=== PATIENT | female | born 1995 | race Caucasian/White ===

== ENCOUNTER 2017-02-10 16:59 | Emergency (ER) | payer OTHER ==
[2017-02-10 17:08] VITALS: BP 133/83
[2017-02-10] MEDS ORDERED: BENZONATATE 100 MG CAPSULE PO ONE (18:01)
--- NOTE | 2017-02-10 18:07 | ER Document Report ---
ED Oral Problem - General Chief Complaint: Mouth Problem Stated Complaint: MOUTH PAIN Time Seen by Provider: 02/10/17 17:39 Mode of Arrival: Ambulatory Information source: Patient Notes: 1-year-old female presents to ED for complaint of mouth pain. She states she just had her wisdom teeth removed ago and when she went to the dentist until she was having severe pain in the upper right side they were not there and was she was told that they were out of town. TRAVEL OUTSIDE OF THE [place] IN LAST 30 DAYS: No - HPI Patient complains to provider of: Other - Dental pain at the site of a wisdom tooth extraction on Onset: Other - Onset: Gradual Quality of pain: Throbbing Severity: Moderate Pain Level: 4 Context: Recent dental extractions Associated symptoms: Other - The site of the recent tooth extraction removal of tooth Worsened by: Other - States it hurts all the time Relieved by: Nothing Similar symptoms previously: No Recently seen / treated by doctor/dentist: Yes - Related Data Allergies/Adverse Reactions: amoxicillin [Amoxicillin] Allergy (Verified 02/10/17 17:06) Past Medical History - Social History Smoking Status: Never Smoker Chew tobacco use (# tins/day): No Smoking Education Provided: No Frequency of alcohol use: Social Drug Abuse: None Occupation: none Lives with: Family Family History: CAD, DM, Hyperlipidemia, Hypertension, Malignancy, Thyroid Disfunction. denies: Arthritis, COPD, CVA Patient has suicidal ideation: No Patient has homicidal ideation: No - Past Medical History Cardiac Medical History: Reports: None Pulmonary Medical History: Reports: None EENT Medical History: Reports: None Neurological Medical History: Reports: Hx Migraine Endocrine Medical History: Reports: None Renal/ Medical History: Reports: None Malignancy Medical History: Reports: None GI Medical History: Reports: Hx Gastroesophageal Reflux Disease Musculoskeltal Medical History: Reports None Skin Medical History: Reports None Psychiatric Medical History: Reports: None Traumatic Medical History: Reports: None Infectious Medical History: Reports: None Past Surgical History: Reports: Hx Oral Surgery - [place] teeth - Immunizations Immunizations up to date: Yes Hx Diphtheria, Pertussis, Tetanus Vaccination: Yes Review of Systems - Review of Systems Constitutional: No symptoms reported EENT: Mouth pain - [place] teeth extraction Cardiovascular: No symptoms reported Respiratory: No symptoms reported Gastrointestinal: No symptoms reported Genitourinary: No symptoms reported Female Genitourinary: No symptoms reported Musculoskeletal: No symptoms reported Skin: No symptoms reported Hematologic/Lymphatic: No symptoms reported Neurological/Psychological: No symptoms reported Physical Exam - Vital signs Vitals: Temp Pulse Resp BP Pulse Ox 98.7 F 103 H 16 133/83 H 97 02/10/17 17:06 02/10/17 17:06 02/10/17 17:06 02/10/17 17:06 02/10/17 17:06 Interpretation: Normal - General General appearance: Appears well, Alert - HEENT Head: Normocephalic, Atraumatic Eyes: Normal Pupils: PERRL Ears: Normal External canal: Normal Tympanic membrane: Normal Sinus: Normal Nasal: Normal Teeth diagram: 1 - [place] teeth extraction surgically. Tooth was extracted today is Thursday Pharynx: Normal Neck: Normal - Respiratory Respiratory status: No respiratory distress Chest status: Nontender Breath sounds: Normal Chest palpation: Normal - Cardiovascular Rhythm: Regular Heart sounds: Normal auscultation Murmur: No - Abdominal Inspection: Normal Distension: No distension Bowel sounds: Normal Tenderness: Nontender Organomegaly: No organomegaly - Back Back: Normal, Nontender - Extremities General upper extremity: Normal inspection, Nontender, Normal color, Normal ROM , Normal temperature General lower extremity: Normal inspection, Nontender, Normal color, Normal ROM , Normal temperature, Normal weight bearing. No: Kajal's sign - Neurological Neuro grossly intact: Yes Cognition: Normal Orientation: AAOx4 [place] Coma Scale Eye Opening: Spontaneous [place] Coma Scale Verbal: Oriented [place] Coma Scale Motor: Obeys Commands William Coma Scale Total: 15 Speech: Normal Motor strength normal: LUE, RUE, LLE, RLE Sensory: Normal - Psychological Associated symptoms: Normal affect, Normal mood - Skin Skin Temperature: Warm Skin Moisture: Dry Skin Color: Normal Course - Vital Signs Vital signs: Temp Pulse Resp BP Pulse Ox 98.7 F 103 H 16 133/83 H 97 02/10/17 17:06 02/10/17 17:06 02/10/17 17:06 02/10/17 17:06 02/10/17 17:06 Discharge - Discharge Clinical Impression: pain at site for recent dental extractio Condition: Stable Disposition: HOME, SELF-CARE Instructions: Dentist Additional Instructions: You have pain at the site of your wisdom tooth extraction. This is usually caused by a dry socket. Take your pain medication as prescribed and follow up with your dentist as soon as possible. I am giving you a medicine that will help to numb the area you can take that every 8 hours as I explained it to you. Take your antibiotics and pain medications as they were prescribed by the dentist. No sucking on straws. FOLLOW-UP CARE: You have been referred for follow-up care to the dentists listed below. Call the dentists office for an appointment as you were instructed or within the next two days. If you experience worsening or a significant change in your symptoms, notify the physician immediately or return to the Emergency Department at any time for re-evaluation. [facility] [address] [place], [place] Thursday mornings, by appointment [facility] [address] [place] [address] [facility] [place] [address] [facility] [address] [facility] ([facility]) [facility] [address] [email or web address] [address] [place] [address] Thursday- 8:00am to 5:00 pm Will see patients from other [facility]. Charges based on income and family size and accepts Medicare, Medicaid, and Insurances Will pull molars [facility] [id number] Hours of Operation 8:00 am - 4:30 pm weekdays The following dental offices accept Medicaid: [facility] Dr. [address]on Dr. Diallo Dr. David Dr. Leiva Adiel Roy, Holly, and Karoline oral surgery Dr. Miller ([place]) Dr. Waldron ([place]) [facility] Drs. Gaming and Deon ([place]) Dr. Mayers ([place]) [facility] Dr. Joe ([place]) Drs. Floyd and ([place]) Medicaid Care Line FOLLOW-UP CARE: If you have been referred to a physician for follow-up care, call the physician s office for an appointment as you were instructed or within the next two days. If you experience worsening or a significant change in your symptoms, notify the physician immediately or return to the Emergency Department at any time for re-evaluation. Prescriptions: Benzonatate [Tessalon Perle 100 mg Capsule] 100 mg PO Q8HP PRN #14 cap PRN Reason: Forms: Elevated Blood Pressure
== END 2017-02-10 18:22 | disposition home or self-care (01) ==
LOC: ER 16:59
DX: K08.9 Disorder of teeth and supporting structures, unspecified (principal); Z98.818 Other dental procedure status; Z88.0 Allergy status to penicillin
CPT/HCPCS: 99282

== ENCOUNTER 2017-08-08 13:15 | Emergency (ER) | payer OTHER ==
[2017-08-08] MEDS ORDERED: NORMAL SALINE 1000 ML 1,000 ML IV ONE ×2 (13:31→15:42)
[2017-08-08] MEDS ORDERED: ONDANSETRON HCL INJ/PF 4 MG/2 ML SDV IV ONE (13:32)
--- NOTE | 2017-08-08 13:33 | ER Document Report ---
ED Medical Screen (RME) - General Chief Complaint: Nausea/Vomiting Stated Complaint: NAUSEA, VOMTING Time Seen by Provider: 08/08/17 13:31 Mode of Arrival: Wheelchair Information source: Patient TRAVEL OUTSIDE OF THE [place] IN LAST 30 DAYS: No - HPI Patient complains to provider of: N/V; ETOH use (recent) Onset: Other - pt states she "drank too much alcohol last pm" and has been vomiting ever since (denies diarrhea) - Related Data Allergies/Adverse Reactions: amoxicillin [Amoxicillin] Allergy (Verified 02/10/17 17:06) Past Medical History Neurological Medical History: Reports: Hx Migraine Renal/ Medical History: Denies: Hx Peritoneal Dialysis GI Medical History: Reports: Hx Gastroesophageal Reflux Disease Past Surgical History: Reports: Hx Oral Surgery - [place] teeth - Immunizations Immunizations up to date: Yes Hx Diphtheria, Pertussis, Tetanus Vaccination: Yes Physical Exam - Vital signs Vitals: Temp Pulse Resp BP Pulse Ox 99.0 F 118 H 18 136/93 H 99 08/08/17 13:19 08/08/17 13:19 08/08/17 13:19 08/08/17 13:19 08/08/17 13:19 Course - Vital Signs Vital signs: Temp Pulse Resp BP Pulse Ox 99.0 F 118 H 18 136/93 H 99 08/08/17 13:19 08/08/17 13:19 08/08/17 13:19 08/08/17 13:19 08/08/17 13:19
[2017-08-08 14:04] LABS: ABSOLUTE LYMPHOCYTES (AUTO) 0.8 10^3/uL (0.5-4.7); ABSOLUTE MONOCYTES (AUTO) 0.2 10^3/uL (0.1-1.4); ABSOLUTE NEUT (AUTO) 9.8 10^3/uL (1.7-8.2); BASOPHILS % (AUTO) 0.3 % (0-2); EOSINOPHILS % (AUTO) 0.1 % (0-6); HEMATOCRIT 43.7 % (36.0-47.0); HEMOGLOBIN 15.1 g/dL (12.0-15.5); HGB HCT DIFFERENCE 1.6; LYMPHOCYTES % (AUTO) 7.4 % (13-45); MEAN CORPUSCULAR HEMOGLOBIN 31.2 pg (27.0-33.4); MEAN CORPUSCULAR HGB CONC 34.4 g/dL (32.0-36.0); MEAN CORPUSCULAR VOLUME 91 fl (80-97); MONOCYTES % (AUTO) 1.9 % (3-13); RED BLOOD COUNT 4.82 10^6/uL (3.72-5.28); RED CELL DISTRIBUTION WIDTH 13.4 % (11.5-14.0); SEGMENTED NEUTROPHILS % (AUTO) 90.3 % (42-78); WHITE BLOOD COUNT 10.8 10^3/uL (4.0-10.5)
[2017-08-08] MEDS ORDERED: DIPHENHYDRAMINE HCL 50 MG/ML VIAL IV ONE (14:19)
[2017-08-08] MEDS ORDERED: DEXTROSE 5%-LACTATED RINGERS 1,000 ML IV ONE (14:19)
[2017-08-08] MEDS ORDERED: KETOROLAC TROMETHAMINE INJ/PF 30 MG/1 ML SDV IV ONE (14:19)
[2017-08-08] MEDS ORDERED: PROCHLORPERAZINE EDISYLATE INJ 10 MG/2 ML VIAL IM ONE (14:19)
--- NOTE | 2017-08-08 14:19 | ER Document Report ---
ED GI/ - General Mode of Arrival: Wheelchair Information source: Patient TRAVEL OUTSIDE OF THE [place] IN LAST 30 DAYS: No <CURT NEGRETE - Last Filed: 08/08/17 14:22> <BERTRAND AUSTIN - Last Filed: 08/08/17 16:06> - General Chief Complaint: Nausea/Vomiting Stated Complaint: NAUSEA, VOMTING Time Seen by Provider: 08/08/17 13:31 Notes: Patient is a 21-year-old female that presents to the emergency department today after waking up this morning at 0900 with a headache, nausea, vomiting, and associated abdominal pain. Patient states that yesterday she drank quite a bit of EtOH and she believes she is hungover. Patient has a history of migraine headaches. Patient states she is not a heavy drinker usually. (CURT NEGRETE) - Related Data Allergies/Adverse Reactions: amoxicillin [Amoxicillin] Allergy (Verified 02/10/17 17:06) Past Medical History - General Information source: Patient - Social History Smoking Status: Never Smoker Cigarette use (# per day): No Chew tobacco use (# tins/day): No Frequency of alcohol use: 2-3 beers every 2 weeks Drug Abuse: None Family History: CAD, DM, Hyperlipidemia, Hypertension, Malignancy, Thyroid Disfunction Patient has suicidal ideation: No Patient has homicidal ideation: No Neurological Medical History: Reports: Hx Migraine GI Medical History: Reports: Hx Gastroesophageal Reflux Disease Past Surgical History: Reports: Hx Oral Surgery - [place] teeth - Immunizations Immunizations up to date: Yes Hx Diphtheria, Pertussis, Tetanus Vaccination: Yes <CURT NEGRETE - Last Filed: 08/08/17 14:22> Review of Systems - Review of Systems Constitutional: No symptoms reported EENT: See HPI, Other - dry mouth Cardiovascular: No symptoms reported Respiratory: No symptoms reported Gastrointestinal: See HPI, Abdominal pain, Nausea, Vomiting Genitourinary: No symptoms reported Female Genitourinary: No symptoms reported Musculoskeletal: No symptoms reported Skin: No symptoms reported Hematologic/Lymphatic: No symptoms reported Neurological/Psychological: See HPI, Headaches -: Yes All other systems reviewed and negative <CURT NEGRETE - Last Filed: 08/08/17 14:22> Physical Exam - General General appearance: Other - appears uncomfortable In distress: None - HEENT Head: Normocephalic, Atraumatic Eyes: Normal Conjunctiva: Normal Cornea: Normal Extraocular movements intact: Yes Mucous membranes: Dry - Respiratory Respiratory status: No respiratory distress Breath sounds: Normal Chest palpation: Normal - Cardiovascular Rhythm: Regular Heart sounds: Normal auscultation Murmur: No - Abdominal Inspection: Other - resonant to percuss Distension: No distension Bowel sounds: Normal Tenderness: Tender - mild epigastric tenderness - Extremities General upper extremity: Normal inspection, Normal ROM. No: Edema General lower extremity: Normal inspection, Normal ROM. No: Edema - Neurological Neuro grossly intact: Yes Cognition: Normal Orientation: AAOx4 [place] Coma Scale Eye Opening: Spontaneous [place] Coma Scale Verbal: Oriented [place] Coma Scale Motor: Obeys Commands [place] Coma Scale Total: 15 Speech: Normal - Psychological Associated symptoms: Normal affect, Normal mood - Skin Skin Temperature: Warm Skin Moisture: Dry Skin Color: Normal <CURT NEGRETE - Last Filed: 08/08/17 14:22> - Vital signs Vitals: Temp Pulse Resp BP Pulse Ox 99.0 F 118 H 18 136/93 H 99 08/08/17 13:19 08/08/17 13:19 08/08/17 13:19 08/08/17 13:19 08/08/17 13:19 Course - Laboratory Result Diagrams: 08/08/17 13:45 08/08/17 13:45 <CURT NEGRETE - Last Filed: 08/08/17 14:22> - Laboratory Result Diagrams: 08/08/17 13:45 08/08/17 13:45 <BERTRAND AUSTIN - Last Filed: 08/08/17 16:06> - Re-evaluation Re-evalutation: 08/08/17 16:06 Patient is feeling much better this time, is anxious to go home. (BERTRAND AUSTIN ) - Vital Signs Vital signs: Temp Pulse Resp BP Pulse Ox 99.0 F 118 H 18 136/93 H 99 08/08/17 13:19 08/08/17 13:19 08/08/17 13:19 08/08/17 13:19 08/08/17 13:19 - Laboratory Laboratory results interpreted by me: 08/08/17 08/08/17 08/08/17 13:45 13:45 14:57 WBC 10.8 H Seg Neutrophils % 90.3 H Lymphocytes % 7.4 L Monocytes % 1.9 L Absolute Neutrophils 9.8 H Glucose 119 H Calcium 11.1 H Direct Bilirubin 0.5 H AST 37 H ALT 57 H Albumin 5.2 H Urine Glucose (UA) 50 H Urine Ketones TRACE H Urine Blood MODERATE H Ur Leukocyte Esterase MODERATE H Discharge <CURT NEGRETE - Last Filed: 08/08/17 14:22> <BERTRAND AUSTIN - Last Filed: 08/08/17 16:06> - Discharge Clinical Impression: Hangover Qualifiers: Complication of substance-induced condition: uncomplicated Qualified Code(s): F10.120 - Alcohol abuse with intoxication, uncomplicated Nausea and vomiting Qualifiers: Vomiting type: unspecified Vomiting Intractability: non-intractable Qualified Code(s): R11.2 - Nausea with vomiting, unspecified Abdominal pain Qualifiers: Abdominal location: generalized Qualified Code(s): R10.84 - Generalized abdominal pain Migraine headache Qualifiers: Migraine type: unspecified Status migrainosus presence: without status migrainosus Intractability: not intractable Qualified Code(s): G43.909 - Migraine, unspecified, not intractable, without status migrainosus Condition: Stable Disposition: HOME, SELF-CARE Additional Instructions: Drink plenty of fluids today. Plenty of rest. Take Aleve or Motrin for headache if needed. Follow-up with your doctor if not improving. RETURN TO THE EMERGENCY ROOM IF ANY NEW OR WORSENING SYMPTOMS. Scribe Attestation: 08/08/17 14:59 I personally performed the services described in the documentation, reviewed and edited the documentation which was dictated to the scribe in my presence, and it accurately records my words and actions. (BERTRAND AUSTIN) Scribe Documentation - Scribe Written by Gonzaloe:: Padmini Seth, 08/08/2017, 1430 acting as scribe for :: Kira <CURT NEGRETE - Last Filed: 08/08/17 14:22>
[2017-08-08] MEDS ORDERED: PANTOPRAZOLE SODIUM 40 MG VIAL IV ONE (14:21)
[2017-08-08 14:23] LABS: BLOOD UREA NITROGEN 13 mg/dL (7-20); CALCIUM 11.1 mg/dL (8.4-10.2); CREATININE RESULT 0.62 mg/dL (0.52-1.25); GLUCOSE 119 mg/dL (75-110); POTASSIUM 4.8 mmol/L (3.6-5.0)
[2017-08-08 14:24] LABS: ALANINE AMINOTRANSFERASE 57 U/L (9-52); ALBUMIN 5.2 g/dL (3.5-5.0); ALCOHOL < 10 mg/dL (NONE DETECTED); ALKALINE PHOSPHATASE 74 U/L (38-126); ANION GAP 15 (5-19); ASPARTATE AMINO TRANSFERASE 37 U/L (14-36); BILIRUBIN,DIRECT 0.5 mg/dL (0.0-0.4); BILIRUBIN,TOTAL 0.8 mg/dL (0.2-1.3); CARBON DIOXIDE 24 mmol/L (22-30); CHLORIDE 104 mmol/L (98-107); SODIUM 143.3 mmol/L (137-145); TOTAL PROTEIN 8.2 g/dL (6.3-8.2)
[2017-08-08] MEDS ORDERED: DEXTROSE 5%-NORMAL SALINE 1,000 ML IV ONE (14:30)
[2017-08-08] MEDS ORDERED: PROCHLORPERAZINE EDISYLATE INJ 10 MG/2 ML VIAL IV ONE (14:51)
[2017-08-08 15:32] LABS: APPEARANCE,URINE CLOUDY; BILIRUBIN,URINE NEGATIVE (NEGATIVE); GLUCOSE, URINE 50 mg/dL (NEGATIVE); KETONES,URINE TRACE mg/dL (NEGATIVE); LEUKOCYTE ESTERASE,URINE MODERATE (NEGATIVE); NITRITE,URINE NEGATIVE (NEGATIVE); PROTEIN,URINE NEGATIVE (NEGATIVE); URINE SPECIFIC GRAVITY 1.015; UROBILINOGEN,URINE NEGATIVE mg/dL (<2.0)
[2017-08-08 15:45] LABS: URINE BARBITURATES SCREEN NEGATIVE; URINE METHADONE SCREEN NEGATIVE; URINE OPIATES LOW NEGATIVE; URINE PHENCYCLIDINE SCREEN NEGATIVE
[2017-08-08 16:15] VITALS: BP 121/96
== END 2017-08-08 16:14 | disposition home or self-care (01) ==
LOC: ER 13:15
DX: F10.129 Alcohol abuse with intoxication, unspecified (principal); G43.909 Migraine, unspecified, not intractable, without status migrainosus; R11.2 Nausea with vomiting, unspecified; R10.816 Epigastric abdominal tenderness; R68.2 Dry mouth, unspecified; Z88.0 Allergy status to penicillin; Z87.19 Personal history of other diseases of the digestive system
CPT/HCPCS: 99284; 96361; 96374; 96375; 36415; 80307 ×2; 85025; 81025; 80053; 81001; J1200; J1885; S0164; J0780; J2405; J7030